=== PATIENT | male | born 1990 | race Two or more races ===

== ENCOUNTER 2018-04-07 19:36 | Emergency (ER) | payer SELFPAY ==
[~2018-04-07] VITALS: Ht 180.3 cm; Wt 79.8 kg
[2018-04-07] MEDS ORDERED: methylPREDNISolone ACETATE 80 MG/ML VIAL. IM ONE (20:00)
[2018-04-07 20:05] VITALS: BP 131/64
--- NOTE | 2018-04-07 21:56 | PHYS DOC ---
Past Medical History Past Medical History: No Pertinent History Past Surgical History: No Surgical History Alcohol Use: Occasionally Drug Use: None Adult General Chief Complaint Chief Complaint: KNEE INJURY HPI HPI Patient is a 28 year old male who presents with pain to his left knee times five days. The patient denies any known injury. He states that he felt like it had been swelling. There is no redness or seats to the area. The patient does have psoriasis and currently has multiple plaques noted to his skin. He has never been diagnosed with psoriatic arthritis. Review of Systems Review of Systems Constitutional: Denies fever or chills [] Eyes: Denies change in visual acuity, redness, or eye pain [] HENT: Denies nasal congestion or sore throat [] Respiratory: Denies cough or shortness of breath [] Cardiovascular: No additional information not addressed in HPI [] GI: Denies abdominal pain, nausea, vomiting, bloody stools or diarrhea [] : Denies dysuria or hematuria [] Musculoskeletal: see history of present illness Integument: Denies rash or skin lesions [] Neurologic: Denies headache, focal weakness or sensory changes [] Endocrine: Denies polyuria or polydipsia [] All other systems were reviewed and found to be within normal limits, except as documented in this note. Current Medications Current Medications Current Medications Medications (Trade) Dose Ordered Sig/[facility] Start Time Stop Time Status Last Admin Dose Admin Methylprednisolone Acetate (DEPO-Medrol 80MG VIAL) 80 mg 1X ONCE 04/07/18 20:00 04/07/18 20:20 DC 04/07/18 20:33 80 MG Allergies Allergies Allergies Coded Allergies Type Severity Reaction Last Updated Verified No Known Drug Allergies 04/07/18 No Physical Exam Physical Exam Constitutional: Well developed, well nourished, no acute distress, non-toxic appearance. [] HENT: Normocephalic, atraumatic, bilateral external ears normal, oropharynx moist, no oral exudates, nose normal. [] Eyes: PERRLA, EOMI, conjunctiva normal, no discharge. [] Neck: Normal range of motion, no tenderness, supple, no stridor. [] Cardiovascular:Heart rate regular rhythm, no murmur [] Lungs & Thorax: Bilateral breath sounds clear to auscultation [] Abdomen: Bowel sounds normal, soft, no tenderness, no masses, no pulsatile masses. [] Skin: Warm, dry, no erythema, no rash. [] Back: No tenderness, no CVA tenderness. [] Extremities: generalized tenderness to the left knee with no calor or erythema noted, no cyanosis, no clubbing, ROM intact, no edema. [] Neurologic: Alert and oriented X 3, normal motor function, normal sensory function, no focal deficits noted. [] Psychologic: Affect normal, judgement normal, mood normal. [] Current Patient Data Vital Signs Vital Signs Date Time Temp Pulse Resp B/P (MAP) Pulse Ox O2 Delivery O2 Flow Rate FiO2 04/07/18 20:05 98.2 61 18 131/64 (86) 99 Room Air 98.2 EKG EKG [] Radiology/Procedures Radiology/Procedures [] PATIENT: BLOSSOM HASKINS ACCOUNT: [id number] : 1990 LOCATION: ER AGE: 28 SEX: M EXAM STATUS: DEP ER ORD. PHYSICIAN: EVELYN DE LA TORRE APRN REASON: pain x 5 days PROCEDURE: KNEE LEFT 3V Three-view left knee radiographs 04/07/2018 CLINICAL HISTORY: Left knee pain for 5 days. AP, lateral and oblique digital radiographs left knee were obtained. No fracture or dislocation left knee is seen. IMPRESSION: No fracture or dislocation of the left knee is seen. Electronically signed by: Austin Jensen MD (04/07/2018 11:59 PM) [facility] DICTATED and SIGNED BY: AUSTIN JENSEN MD DATE: 04/07/18 1130 Course & Med Decision Making Course & Med Decision Making Pertinent Labs and Imaging studies reviewed. (See chart for details) []The patient was given a shot of steroids in the emergency department. He is to follow up with a clinic for possible referral to rheumatology. He is in agreement with this plan. Dragon Disclaimer Dragon Disclaimer This electronic medical record was generated, in whole or in part, using a voice recognition dictation system. Departure Departure Impression: Primary Impression: Knee pain Additional Impression: Psoriasis Disposition: 01 HOME, SELF-CARE Condition: STABLE Referrals: NO PCP (PCP) Patient Instructions: Knee Pain Additional Instructions: Follow-up with your primary care provider for referral to rheumatology. You may take ibuprofen or Tylenol for pain. Wear the knee immobilizer for comfort. If worsening return to the emergency department. Problem Qualifiers EVELYN DE LA TORRE APRN Apr 07, 2018 21:56
--- NOTE | 2018-04-08 00:02 | RAD ---
Three-view left knee radiographs 04/07/2018 CLINICAL HISTORY: Left knee pain for 5 days. AP, lateral and oblique digital radiographs left knee were obtained. No fracture or dislocation left knee is seen. IMPRESSION: No fracture or dislocation of the left knee is seen. Electronically signed by: Lj Ybarra MD (04/07/2018 11:59 PM) [facility]
== END 2018-04-07 22:07 | disposition home or self-care (01) ==
LOC: ER 19:36
DX: L40.8 Other psoriasis (principal); M25.562 Pain in left knee
CPT/HCPCS: 29505; 73562; 96372; 99283; J1040